=== PATIENT | female | born 1980 | race Hispanic/Latino ===

== ENCOUNTER 2017-04-28 15:32 | Emergency (ER) | payer SELFPAY ==
[2017-04-28 16:11] LABS: Hematocrit 29.8 % (36.0-47.0); Mean Platelet Volume 9.3 fL (7.4-10.4); White Blood Cell (WBC) Count 5.7 thou/uL (4.8-10.8)
[2017-04-28 16:30] LABS: Anion Gap 14 mmol/L (10-20); BUN (Urea Nitrogen) 10 mg/dL (7.0-18.7); Calc. Creatinine Clearance 0 mL/min (70-130); Calcium 9.1 mg/dL (7.8-10.44); Carbon Dioxide 23 mmol/L (22-29); Chloride 106 mmol/L (98-107); Estimated GFR-MDRD 80
[2017-04-28 16:34] LABS: Troponin I Less than 0.010 ng/mL (< 0.028)
[2017-04-28 16:44] LABS: #Eosinphils 0.1 thou/uL (0.0-0.7); #Lymphocytes 2.5 thou/uL (1.20-3.40); #Monocytes 0.7 thou/uL (0.11-0.59); #Neutrophils 2.4 thou/uL (1.40-6.50); %Basophils 0.6 % (0.0-1.0); %Eosinophils 2.5 % (0.0-10.0); %Lymphocytes 42.9 % (21.0-51.0); %Monocytes 12.7 % (0.0-10.0); Anisocytosis SLIGHT = 6-15 cells (100X) (0-5/hpf); Hypochromia SLIGHT = 6-15 cells (100X) (0-5/hpf); Microcytosis SLIGHT = 6-15 cells (100X) (0-5/hpf)
--- NOTE | 2017-04-28 17:24 | RAD ---
CHEST ONE VIEW: History: Chest pain. Comparison: 2014 FINDINGS: Lungs are clear. No pneumothorax or effusions. Cardiac silhouette and mediastinal contours are withi n normal limits. IMPRESSION: No acute cardiopulmonary process. POS: OFF
== END 2017-04-28 17:28 | disposition home or self-care (01) ==
LOC: ERS 15:32
DX: F43.0 Acute stress reaction (principal); D64.9 Anemia, unspecified
CPT/HCPCS: 71010; 80048; 82553; 83880; 84484; 85025; 93005

== ENCOUNTER 2017-07-30 09:28 | Emergency (ER) | payer SELFPAY | END 2017-07-30 10:08 | disposition home or self-care (01) | LOC: ERS 09:28 | DX: J02.0 Streptococcal pharyngitis (principal) | CPT/HCPCS: 87081; 87430; 99283 ==

== ENCOUNTER 2018-05-05 06:20 | Emergency (ER) | payer SELFPAY ==
[2018-05-05] MEDS ORDERED: Bupivacaine 0.5% 10 ML VIAL ONE (07:16)
[2018-05-05] MEDS ORDERED: Penicillin V Potassium 250 MG TAB PO SCH (07:45)
== END 2018-05-05 07:50 | disposition home or self-care (01) ==
LOC: ERS 06:20
DX: K03.81 Cracked tooth (principal); Z79.899 Other long term (current) drug therapy
CPT/HCPCS: 64400; J3490

== ENCOUNTER 2018-05-07 13:03 | Emergency (ER) | payer SELFPAY ==
[2018-05-07] MEDS ORDERED: Ketorolac Tromethamine 30 MG/ML VIAL ONE (15:43)
[2018-05-07] MEDS ORDERED: Clindamycin/D5W 600 mg/50 ml Premix Bag ONE (15:47)
== END 2018-05-07 17:19 | disposition home or self-care (01) ==
LOC: ERS 13:03
DX: K04.7 Periapical abscess without sinus (principal); Z79.899 Other long term (current) drug therapy
CPT/HCPCS: 96365; 96375; J1885; J3490

== ENCOUNTER 2018-05-08 08:55 | Emergency (ER) | payer SELFPAY ==
[2018-05-08] MEDS ORDERED: Clindamycin/D5W 600 mg/50 ml Premix Bag ONE (09:19)
[2018-05-08] MEDS ORDERED: Dexamethasone 4 mg/ml Vial ONE (09:19)
[2018-05-08] MEDS ORDERED: Ketorolac Tromethamine 30 MG/ML VIAL ONE (09:19)
== END 2018-05-08 11:08 | disposition home or self-care (01) ==
LOC: ERS 08:55
DX: K04.7 Periapical abscess without sinus (principal)
CPT/HCPCS: 96365; 96375; J1100; J1885; J3490

== ENCOUNTER 2018-10-11 01:30 | Emergency (ER) | payer SELFPAY ==
--- NOTE | 2018-10-11 09:11 | RAD ---
CHEST 2 VIEWS: Date: 10/11/18 HISTORY: Chest pain. COMPARISON: 04/23/11. FINDINGS: Stable small irregular opacity overlying the left mid chest, probably a small granuloma calcification . Heart size is normal. The lungs are clear. No pneumonia, edema, or pleural effusion, or other acute process. IMPRESSION: No acute intrathoracic disease. POS: [facility]
== END 2018-10-11 02:48 | disposition left against medical advice (07) ==
LOC: ERS 01:30
DX: Z53.21 Procedure and treatment not carried out due to patient leaving prior to being seen by health care provider (principal)
CPT/HCPCS: 71046; 93005

== ENCOUNTER 2019-05-13 23:34 | Emergency (ER) | payer SELFPAY ==
[2019-05-14] MEDS ORDERED: Ketorolac Tromethamine 30 MG/ML VIAL ONE (00:12)
== END 2019-05-14 00:30 | disposition home or self-care (01) ==
LOC: ERS 23:34
DX: M54.42 Lumbago with sciatica, left side (principal); F41.9 Anxiety disorder, unspecified
CPT/HCPCS: 96372; 99283; J1885

== ENCOUNTER 2019-09-12 23:57 | Emergency (ER) | payer SELFPAY ==
[2019-09-13] MEDS ORDERED: Dexamethasone 10 MG/ML VIAL ONE (02:00)
== END 2019-09-13 02:08 | disposition home or self-care (01) ==
LOC: ERS 23:57
DX: J02.8 Acute pharyngitis due to other specified organisms (principal); B97.89 Other viral agents as the cause of diseases classified elsewhere; J39.2 Other diseases of pharynx
CPT/HCPCS: 87081; 87430; 99283; J1100

== ENCOUNTER 2020-02-12 21:39 | Emergency (ER) | payer SELFPAY ==
[2020-02-12] MEDS ORDERED: Ketorolac Tromethamine 30 MG/ML VIAL ONE (22:51)
== END 2020-02-12 22:51 | disposition home or self-care (01) ==
LOC: ERS 21:39
DX: S39.012A Strain of muscle, fascia and tendon of lower back, initial encounter (principal); X58.XXXA Exposure to other specified factors, initial encounter
CPT/HCPCS: 96372; 99283; J1885